=== PATIENT | male | born 1990 | race Caucasian/White ===

== ENCOUNTER 2017-07-26 18:47 | Emergency (ER) | payer SELFPAY ==
[2017-07-26] MEDS ORDERED: DEXAMETHASONE 10 MG/ML VIAL ONE (19:24)
[2017-07-26] MEDS ORDERED: DIPHENHYDRAMINE 25 MG TAB/CAP ONE (19:24)
[2017-07-26] MEDS ORDERED: METOCLOPRAMIDE 5 MG TAB ONE (19:25)
--- NOTE | 2017-07-26 19:27 | ER ---
Nurse's Notes [facility] Name: Devora Chan Age: 27 yrs Sex: Male : 1990 Arrival Date: 07/26/2017 Time: 18:50 Bed 20 Private MD: None, None Diagnosis: Migraine Presentation: 07/26 18:52 Presenting complaint: Patient states: "my left ear and my left eye have been hurting aa5 since yesterday". Pt denies cough, congestion. Pt states "I also feel like I am going to pass out". Transition of care: patient was not received from another setting of care. Onset of symptoms was July 2017. Risk Assessment: Do you want to hurt yourself or someone else? Patient reports no desire to harm self or others. Initial Sepsis Screen: Does the patient meet any 2 criteria? No. Patient's initial sepsis screen is negative. Does the patient have a suspected source of infection? No. Patient's initial sepsis screen is negative. Care prior to arrival: None. 18:52 Method Of Arrival: Ambulatory aa5 18:52 Acuity: BRANNON 3 aa5 Triage Assessment: 19:31 Headache History: Denies prior headaches. jd3 Historical: - Allergies: 18:53 No Known Allergies; aa5 - PMHx: 18:53 None; aa5 - PSHx: 18:53 None; aa5 - Immunization history:: Adult Immunizations unknown. - Social history:: Smoking status: Patient/guardian denies using tobacco. - Ebola Screening: : No symptoms or risks identified at this time. Screenin:31 Abuse screen: Denies threats or abuse. Nutritional screening: No deficits noted. jd3 Tuberculosis screening: No symptoms or risk factors identified. Tuberculosis screening: No symptoms or risk factors identified. Fall Risk Ambulatory Aid- None/Bed Rest/Nurse Assist (0 pts). Gait- Normal/Bed Rest/Wheelchair (0 pts) Mental Status- Oriented to own ability (0 pts). Total Arreola Fall Scale indicates No Risk (0-24 pts). Assessment: 19:02 General: Appears uncomfortable, Behavior is calm, cooperative, appropriate for age. jd3 Pain: Complains of pain in left ear and left side of face Pain currently is 10 out of 10 on a pain scale. Quality of pain is described as aching, sharp, Pain began 2-3 days ago. Is continuous, Also complains of sleeplessness. Neuro: Level of Consciousness is awake, alert, obeys commands, Oriented to person, place, time, situation, Moves all extremities. Full function Gait is steady, Speech is normal, Facial symmetry appears normal, Pupils are PERRLA, Intact. Cardiovascular: Heart tones S1 S2 present Capillary refill < 3 seconds Patient's skin is warm and dry. Respiratory: Airway is patent Respiratory effort is even, unlabored, Respiratory pattern is regular, symmetrical, Breath sounds are clear bilaterally. GI: No signs and/or symptoms were reported involving the gastrointestinal system. : No signs and/or symptoms were reported regarding the genitourinary system. EENT: Ear canal redness noted. Derm: Skin is healthy with good turgor, Skin is pink, warm \\T\\ dry. Musculoskeletal: Circulation, motion, and sensation intact. Range of motion: intact in all extremities. 19:41 Reassessment: Patient appears in no apparent distress at this time. Patient and/or jd3 family updated on plan of care and expected duration. Pain level reassessed. Patient is alert, oriented x 3, equal unlabored respirations, skin warm/dry/pink. pt reported understanding of discharge instructions, even and steady gait upon discharge. Vital Signs: 18:54 BP 143 / 101; Pulse 72; Resp 16 S; Temp 98.4(TE); Pulse Ox 97% on R/A; Weight 65.77 kg aa5 (R); Height 6 ft. 0 in. (182.88 cm) (R); Pain 9/10; 19:43 BP 130 / 88; Pulse 65; Resp 18 S; Pulse Ox 98% on R/A; jd3 18:54 Body Mass Index 19.67 (65.77 kg, 182.88 cm) aa5 ED Course: 18:50 Patient arrived in ED. sb2 18:50 None, None is Private Physician. sb2 18:53 Triage completed. aa5 18:53 Arm band placed on. aa5 19:02 Hardeep Aguilar, JEFFREY is Primary Nurse. jd3 19:10 Nael Forbes MD is Attending Physician. rn 19:17 Lc Cornell MD is Attending Physician. ps1 19:32 Patient has correct armband on for positive identification. jd3 19:42 No provider procedures requiring assistance completed. Patient did not have IV access jd3 during this emergency room visit. Administered Medications: 19:28 Drug: Benadryl 50 mg Route: PO; jd3 19:40 Follow up: Response: Medication administered at discharge. jd3 19:28 Drug: Reglan 10 mg Route: PO; jd3 19:40 Follow up: Response: Medication administered at discharge. jd3 19:28 Drug: Decadron 10 mg Route: IM; Site: Other; jd3 19:33 Follow up: Response: Medication administered at discharge. jd3 Outcome: 19:26 Discharge ordered by . ps1 19:42 Discharged to home ambulatory, with family. jd3 19:42 Condition: stable 19:42 Discharge instructions given to patient, family, Instructed on discharge instructions, follow up and referral plans. Demonstrated understanding of instructions, follow-up care. 19:43 Patient left the ED. jd3 Signatures: Nael Forbes MD MD rn Calderon, Audri, RN RN aa5 Hardeep Aguilar RN RN jd3 Singer, Phillip, MD MD ps1 Sushma Chua sb2
--- NOTE | 2017-07-26 19:27 | EDPHYS ---
Physician Documentation [facility] Name: Devora Chan Age: 27 yrs Sex: Male : 1990 Arrival Date: 07/26/2017 Time: 18:50 Bed 20 Private MD: None, None ED Physician Lc Cornell HPI: 07/26 19:17 This 27 yrs old Male presents to ER via Ambulatory with complaints of ps1 Headache. 19:17 patient states that he has had an intermittent headache for the last week. Describes ps1 the pain as sharp and localized to the left temporal region. States that he had ear pain in the beginning of the week and that might be the cause. Pain rated as moderate, worse with loud noises. Pain radiates behind the eye. No visual disturbance or aura. No mastoid pain. . Historical: - Allergies: 18:53 No Known Allergies; aa5 - PMHx: 18:53 None; aa5 - PSHx: 18:53 None; aa5 - Immunization history:: Adult Immunizations unknown. - Social history:: Smoking status: Patient/guardian denies using tobacco. - Ebola Screening: : No symptoms or risks identified at this time. ROS: 19:17 Constitutional: Negative for fever, chills, and weight loss, Eyes: Negative for injury, ps1 pain, redness, and discharge, Cardiovascular: Negative for chest pain, palpitations, and edema, Respiratory: Negative for shortness of breath, cough, wheezing, and pleuritic chest pain, Abdomen/GI: Negative for abdominal pain, nausea, vomiting, diarrhea, and constipation, Back: Negative for injury and pain, MS/Extremity: Negative for injury and deformity, Skin: Negative for injury, rash, and discoloration. 19:17 ENT: Positive for ear pain. 19:17 Neuro: Positive for headache, Negative for dizziness, gait disturbance, hearing loss, visual changes, weakness. Exam: 19:17 Constitutional: This is a well developed, well nourished patient who is awake, alert, ps1 and in no acute distress. Head/Face: Normocephalic, atraumatic. Eyes: Pupils equal round and reactive to light, extra-ocular motions intact. Lids and lashes normal. Conjunctiva and sclera are non-icteric and not injected. 19:17 Cardiovascular: Regular rate and rhythm. No gallops, murmurs, or rubs. Normal PMI, no JVD. No pulse deficits. Respiratory: Lungs have equal breath sounds bilaterally, clear to auscultation and percussion. No rales, rhonchi or wheezes noted. No increased work of breathing, no retractions or nasal flaring. Abdomen/GI: Soft, non-tender, with normal bowel sounds. No distension or tympany. No guarding or rebound. No evidence of tenderness throughout. Back: No spinal tenderness. No costovertebral tenderness. Full range of motion. MS/ Extremity: Pulses equal, no cyanosis. Neurovascular intact. Full, normal range of motion. Neuro: Awake and alert, GCS 15, oriented to person, place, time, and situation. Cranial nerves II-XII grossly intact. Sensory grossly intact. Psych: Awake, alert, with orientation to person, place and time. Behavior, mood, and affect are within normal limits. 19:17 ENT: Mouth: poor dentition. Vital Signs: 18:54 BP 143 / 101; Pulse 72; Resp 16 S; Temp 98.4(TE); Pulse Ox 97% on R/A; Weight 65.77 kg aa5 (R); Height 6 ft. 0 in. (182.88 cm) (R); Pain 9/10; 19:43 BP 130 / 88; Pulse 65; Resp 18 S; Pulse Ox 98% on R/A; jd3 18:54 Body Mass Index 19.67 (65.77 kg, 182.88 cm) aa5 MDM: 19:10 Patient medically screened. rn 19:17 Data reviewed: vital signs, nurses notes. ED course: Patient seen and evaluated. ps1 History not concerning for SAH. No mastoid pain. Seems more c/w migraine. Left ear had no effusion. Mildly erythematous but otherwise not concerning for infection. Will give decadron, benadryl, and reglan. Stable for discharge. . Administered Medications: 19:28 Drug: Benadryl 50 mg Route: PO; jd3 19:40 Follow up: Response: Medication administered at discharge. jd3 19:28 Drug: Reglan 10 mg Route: PO; jd3 19:40 Follow up: Response: Medication administered at discharge. jd3 19:28 Drug: Decadron 10 mg Route: IM; Site: Other; jd3 19:33 Follow up: Response: Medication administered at discharge. jd3 Disposition: 07/26/17 19:26 Discharged to Home. Impression: Migraine. - Condition is Stable. - Discharge Instructions: Migraine Headache, [id number]. - Medication Reconciliation Form, Thank You Letter, Antibiotic Education, Prescription Opioid Use form. - Follow up: Private Physician; When: As needed; Reason: Recheck today's complaints, Continuance of care, Re-evaluation by your physician. Follow up: Emergency Department; When: As needed; Reason: Fever > 102 F, Worsening of condition. - Problem is new. - Symptoms are unchanged. Signatures: Nael Forbes MD MD rn Calderon, Audri, RN RN aa5 Hardeep Aguilar RN RN jd3 Lc Cornell MD MD ps1 Corrections: (The following items were deleted from the chart) 19:43 19:26 07/26/2017 19:26 Discharged to Home. Impression: Migraine. Condition is Stable. jd3 Forms are Medication Reconciliation Form, Thank You Letter, Antibiotic Education, Prescription Opioid Use. Follow up: Private Physician; When: As needed; Reason: Recheck today's complaints, Continuance of care, Re-evaluation by your physician. Follow up: Emergency Department; When: As needed; Reason: Fever > 102 F, Worsening of condition. Problem is new. Symptoms are unchanged. ps1
== END 2017-07-26 19:43 | disposition home or self-care (01) ==
LOC: ER 18:47
DX: G43.909 Migraine, unspecified, not intractable, without status migrainosus (principal)
CPT/HCPCS: 96372; 99283; J1100

== ENCOUNTER 2023-09-22 16:28 | Observation (INO) | payer OTHER, SELFPAY ==
[2023-09-22] MEDS ORDERED: TDAP (DIPHTH,PERTUSS(ACELL),TET VAC) 0.5 ML VIAL IMVAC ONE (17:00)
[2023-09-22] MEDS ORDERED: CEFAZOLIN SODIUM 1 GM/VIAL ONE (17:00)
[2023-09-22] MEDS ORDERED: MORPHINE 4 MG/ML SYR ONE (17:00)
[2023-09-22] MEDS ORDERED: ONDANSETRON 4 MG/2 ML VIAL ONE (17:00)
[2023-09-22] MEDS ORDERED: NA CHLORIDE 0.9% 50 ML ONE (17:01)
--- NOTE | 2023-09-22 17:07 | EDPHYS ---
Physician Documentation [facility] Name: Devora Chan Age: 33 yrs Sex: Male : 1990 Arrival Date: 09/22/2023 Time: 16:28 Bed 15 Private MD: ED Physician Nabil Lang HPI: 09/21 16:59 This 33 yrs old Male presents to ER via Ambulatory with complaints of foreign ankita body in leg. 16:59 The patient presents with pain, swelling, tenderness. The complaints affect the lateral ankita aspect of left calf and left lateral ankle. Context: resulted from puncture, the patient can partially bear weight. Onset: The symptoms/episode began/occurred just prior to arrival. Modifying factors: The symptoms are alleviated by elevating leg, remaining still, the symptoms are aggravated by nothing. Severity of symptoms: At their worst the symptoms were moderate, in the emergency department the symptoms are unchanged. The patient has not experienced similar symptoms in the past. Historical: - Allergies: 16:38 NSAIDS; ld1 - PMHx: 16:38 Hypertensive disorder; GERD; ld1 - Immunization history:: Adult Immunizations up to date. - Infectious Disease History:: Denies. - Social history:: Smoking status: Patient denies any tobacco usage or history of. - Family history:: not pertinent. ROS: 17:02 Constitutional: Negative for fever, chills, and weight loss, Eyes: Negative for injury, ankita pain, redness, and discharge, ENT: Negative for injury, pain, and discharge, Neck: Negative for injury, pain, and swelling, Cardiovascular: Negative for chest pain, palpitations, and edema, Respiratory: Negative for shortness of breath, cough, wheezing, and pleuritic chest pain, Abdomen/GI: Negative for abdominal pain, nausea, vomiting, diarrhea, and constipation, Back: Negative for injury and pain, : Negative for injury, bleeding, discharge, and swelling, Skin: Negative for injury, rash, and discoloration, Neuro: Negative for headache, weakness, numbness, tingling, and seizure, Psych: Negative for depression, anxiety, suicide ideation, homicidal ideation, and hallucinations, Allergy/Immunology: Negative for hives, rash, and allergies, Endocrine: Negative for neck swelling, polydipsia, polyuria, polyphagia, and marked weight changes, Hematologic/Lymphatic: Negative for swollen nodes, abnormal bleeding, and unusual bruising, 17:02 MS/extremity: Positive for decreased range of motion, pain, swelling, tenderness, of the lateral aspect of left calf and left lateral ankle, Exam: 17:02 Constitutional: This is a well developed, well nourished patient who is awake, alert, ankita and in no acute distress. Head/Face: Normocephalic, atraumatic. Eyes: Pupils equal round and reactive to light, extra-ocular motions intact. Lids and lashes normal. Conjunctiva and sclera are non-icteric and not injected. Cornea within normal limits. Periorbital areas with no swelling, redness, or edema. ENT: Nares patent. No nasal discharge, no septal abnormalities noted. Tympanic membranes are normal and external auditory canals are clear. Oropharynx with no redness, swelling, or masses, exudates, or evidence of obstruction, uvula midline. Mucous membranes moist. Neck: Trachea midline, no thyromegaly or masses palpated, and no cervical lymphadenopathy. Supple, full range of motion without nuchal rigidity, or vertebral point tenderness. No Meningismus. Chest/axilla: Normal chest wall appearance and motion. Nontender with no deformity. No lesions are appreciated. Cardiovascular: Regular rate and rhythm with a normal S1 and S2. No gallops, murmurs, or rubs. Normal PMI, no JVD. No pulse deficits. Respiratory: Lungs have equal breath sounds bilaterally, clear to auscultation and percussion. No rales, rhonchi or wheezes noted. No increased work of breathing, no retractions or nasal flaring. Abdomen/GI: Soft, non-tender, with normal bowel sounds. No distension or tympany. No guarding or rebound. No evidence of tenderness throughout. Back: No spinal tenderness. No costovertebral tenderness. Full range of motion. Neuro: Awake and alert, GCS 15, oriented to person, place, time, and situation. Cranial nerves II-XII grossly intact. Motor strength 5/5 in all extremities. Sensory grossly intact. Cerebellar exam normal. Normal gait. Psych: Awake, alert, with orientation to person, place and time. Behavior, mood, and affect are within normal limits. 17:02 Skin: injury, puncture(s), that are deep, of the lateral aspect of left calf and left lateral ankle, Vital Signs: 16:36 BP 146 / 100; Pulse 98; Resp 18; Temp 98(TE); Pulse Ox 100% on R/A; Weight 92.99 kg; ld1 Height 6 ft. 0 in. ; Pain 0/10; 18:21 BP 150 / 97; Pulse 89; Resp 16 S; Pulse Ox 100% on R/A; kc6 19:05 BP 138 / 85; Pulse 79; Resp 18; Pulse Ox 100% on R/A; rg5 16:36 Body Mass Index 27.80 (92.99 kg, 182.88 cm) ld1 16:36 Pain Scale: Adult ld1 MDM: 16:32 Patient medically screened. [facility] 17:00 Differential diagnosis: puncture with foreign. Data reviewed: vital signs, nurses [facility] notes, lab test result(s), radiologic studies. Consideration of Admission/Observation Escalation of care including admission/observation considered. I considered the following discharge prescriptions or medication management in the emergency department Medications were administered in the Emergency Department. See MAR. Independent interpretation of the following test(s) in the Emergency Department X-Ray: My interpretation is fb seen. Test considered but Not performed: EKG: no ekg. Care significantly affected by the following chronic conditions: Hypertension, gerd. 09/21 16:57 Order name: CBC with Diff; Complete Time: 20:13 ankita 09/21 16:57 Order name: Comprehensive Metabolic Panel; Complete Time: 20:13 ankita 09/21 18:54 Order name: CBC with Automated Diff EDOH 09/21 18:54 Order name: Comprehensive Metabolic Panel EDOH 09/21 18:54 Order name: Comprehensive Metabolic Panel EDOH 09/21 16:43 Order name: Tib Fib Left XRAY; Complete Time: 20:13 bd 09/21 18:54 Order name: CONS Physician Consult EDMS Administered Medications: 17:15 Drug: morphine IVP or IV 2 mg IVP once over 4 mins Route: IVP; Infused Over: 4 mins; kc6 Site: right antecubital; 18:14 Follow up: Response: No adverse reaction; Pain is decreased; RASS: Alert and Calm (0) kc6 17:15 Drug: morphine IVP or IV 2 mg IVP once over 4 mins Route: IVP; Infused Over: 4 mins; kc6 Site: right antecubital; 18:14 Follow up: Response: No adverse reaction; Pain is decreased; RASS: Alert and Calm (0) kc6 17:15 Drug: Ondansetron IVP 4 mg IVP once; over 2 minutes Route: IVP; Site: right antecubital;kc6 18:14 Follow up: Response: No adverse reaction kc6 17:15 Drug: Boostrix Tdap IM 0.5 ml IM once; as a single dose Route: IM; Site: right deltoid; kc6 18:15 Follow up: Response: No adverse reaction kc6 17:15 Drug: ceFAZolin IVPB 1 grams 50 ml IVPB once over 30 mins Volume: 50 ml; Route: IVPB; kc6 Infused Over: 30 mins; Site: right antecubital; 18:15 Follow up: Response: No adverse reaction; IV Status: Completed infusion; IV Intake: [id number] Disposition Summary: 09/22/23 17:07 Hospitalization Ordered Notes: Hospitalization Status: Observation ankita Condition: Stable ankita Problem: new ankita Symptoms: have improved ankita Bed/Room Type: Standard ankita Provider: Jaymie Diaz(09/22/23 17:16) ankita Location: Telemetry/MedSurg (observation)(09/22/23 19:15) sa1 Room Assignment: 219(09/22/23 19:15) sa Diagnosis - Puncture wound with foreign body, left lower leg, initial encounter - needle ankita Forms: - Medication Reconciliation Form ankita - SBAR form ankita - Leadership Thank You Letter [facility] Signatures: Dispatcher [employer] Nabil Hannon MD MD cha Sims, Lauren RN RN mark1 Irene Hollins RN RN kc6 [facility] An[facility] Corrections: (The following items were deleted from the chart) 17:16 17:07 Yuan Barre[facility] 19:15 17:07 DAY SURGERY OTHER [place] [id number] 19:15 17:07 [place] [id number]
--- NOTE | 2023-09-22 17:07 | ER ---
Nurse's Notes [facility] Name: Devora Chan Age: 33 yrs Sex: Male : 1990 Arrival Date: 09/22/2023 Time: 16:28 Bed 15 Private MD: Diagnosis: Puncture wound with foreign body, left lower leg, initial encounter-needle Presentation: 09/21 16:36 Chief complaint: Patient states: Part of sowing needle in pt left leg. Coronavirus ld1 screen: At this time, the client does not indicate any symptoms associated with coronavirus-19. Ebola Screen: No symptoms or risks identified at this time. Initial Sepsis Screen: Does the patient meet any 2 criteria? No. Patient's initial sepsis screen is negative. Does the patient have a suspected source of infection? No. Patient's initial sepsis screen is negative. Risk Assessment: Do you want to hurt yourself or someone else? Patient reports no desire to harm self or others. Onset of symptoms was September 22, 2023. 16:36 Method Of Arrival: Ambulatory ld1 16:36 Acuity: BRANNON 3 ld1 Triage Assessment: 16:38 General: Appears in no apparent distress. comfortable, Behavior is calm, cooperative, ld1 appropriate for age. Pain: Denies pain. EENT: No signs and/or symptoms were reported regarding the EENT system. Neuro: Level of Consciousness is awake, alert, obeys commands, Oriented to person, place, time. Cardiovascular: Capillary refill < 3 seconds Patient's skin is warm and dry. Respiratory: Airway is patent Respiratory effort is even, unlabored. GI: Abdomen is round non-distended. : No signs and/or symptoms were reported regarding the genitourinary system. Derm: No signs and/or symptoms reported regarding the dermatologic system. Musculoskeletal: No signs and/or symptoms reported regarding the musculoskeletal system. Historical: - Allergies: 16:38 NSAIDS; ld1 - PMHx: 16:38 Hypertensive disorder; GERD; ld1 - Immunization history:: Adult Immunizations up to date. - Infectious Disease History:: Denies. - Social history:: Smoking status: Patient denies any tobacco usage or history of. - Family history:: not pertinent. Screenin:45 [facility] ED Fall Risk Assessment (Adult) History of falling in the last 3 months, kc6 including since admission No falls in past 3 months (0 pts) Confusion or Disorientation No (0 pts) Intoxicated or Sedated No (0 pts) Impaired Gait No (0 pts) Mobility Assist Device Used No (0 pt) Altered Elimination No (0 pt) Score/Fall Risk Level 0 - 2 = Low Risk. Abuse screen: Denies threats or abuse. Denies injuries from another. Nutritional screening: No deficits noted. Tuberculosis screening: No symptoms or risk factors identified. Assessment: 16:45 General: Appears in no apparent distress. comfortable, well groomed, well developed, kc6 Behavior is calm, cooperative, appropriate for age. Pain: Complains of pain in lateral aspect of left calf Pain does not radiate. Quality of pain is described as sharp, shooting, piercing, Pain began suddenly, Is episodic, Alleviated by rest, repositioning, Aggravated by increased activity, weight bearing, Also complains of no other associated symptoms. Neuro: Level of Consciousness is awake, alert, obeys commands, Oriented to person, place, time, situation, Appropriate for age. Cardiovascular: Capillary refill < 3 seconds. Respiratory: Airway is patent Trachea midline Respiratory effort is even, unlabored, Respiratory pattern is regular, symmetrical. GI: No signs and/or symptoms were reported involving the gastrointestinal system. : No signs and/or symptoms were reported regarding the genitourinary system. EENT: No signs and/or symptoms were reported regarding the EENT system. Derm: Skin is healthy with good turgor, Skin is dry, Skin is pink, warm \T\ dry. Skin temperature is warm. Musculoskeletal: No signs and/or symptoms reported regarding the musculoskeletal system. Circulation, motion, and sensation intact. Capillary refill < 3 seconds, Range of motion: intact in all extremities. Injury Description: Puncture sustained to lateral aspect of left calf is superficial, was sustained 30-60 minutes ago. 17:45 Reassessment: Patient appears in no apparent distress at this time. No changes from kc6 previously documented assessment. Patient and/or family updated on plan of care and expected duration. Pain level reassessed. Patient is alert, oriented x 3, equal unlabored respirations, skin warm/dry/pink. 19:05 General: Appears in no apparent distress. comfortable, Behavior is calm. Pain: Denies rg5 pain. Neuro: Level of Consciousness is awake, alert, obeys commands, Oriented to person, place, time. Cardiovascular: Denies chest pain, Capillary refill < 3 seconds Patient's skin is warm and dry. Respiratory: Airway is patent Trachea midline Respiratory effort is. Vital Signs: 16:36 BP 146 / 100; Pulse 98; Resp 18; Temp 98(TE); Pulse Ox 100% on R/A; Weight 92.99 kg; ld1 Height 6 ft. 0 in. ; Pain 0/10; 18:21 BP 150 / 97; Pulse 89; Resp 16 S; Pulse Ox 100% on R/A; kc6 19:05 BP 138 / 85; Pulse 79; Resp 18; Pulse Ox 100% on R/A; rg5 16:36 Body Mass Index 27.80 (92.99 kg, 182.88 cm) ld1 16:36 Pain Scale: Adult ld1 ED Course: 16:31 Patient arrived in ED. ra3 16:32 Nabil Lang MD is Attending Physician. [facility] 16:38 Triage completed. ld1 16:38 Arm band placed on right wrist. ld1 16:45 Patient has correct armband on for positive identification. Placed in gown. Bed in low kc6 position. Call light in reach. Side rails up X 1. Adult w/ patient. Pulse ox on. NIBP on. Door closed. Noise minimized. Lights dimmed. Pillow given. 16:45 Diet: Patient is NPO. kc6 16:46 Irene Hollins, RN is Primary Nurse. kc6 16:57 Tib Fib Left XRAY In Process Unspecified. EDMS 17:04 Yuan Barreto MD is Hospitalizing Provider. [facility] 17:16 Hospitalizing Provider role handed off by Yuan Barreto MD [facility] 17:16 Jaymie Diaz MD is Hospitalizing Provider. [facility] 17:16 Inserted saline lock: 20 gauge in right antecubital area, using aseptic technique. kc6 Blood collected. Flushed with 10 mL NS. 19:05 Resting quietly. Awaiting bed assignment. rg5 19:33 No provider procedures requiring assistance completed. Patient admitted, IV remains in rg5 place. intact, No redness/swelling at site. 19:34 Provided Education on: npo post mn. rg5 19:50 Comprehensive Metabolic Panel Sent. rg5 19:51 Comprehensive Metabolic Panel Sent. rg5 19:51 CBC with Automated Diff Sent. rg5 Administered Medications: 17:15 Drug: morphine IVP or IV 2 mg IVP once over 4 mins Route: IVP; Infused Over: 4 mins; kc6 Site: right antecubital; 18:14 Follow up: Response: No adverse reaction; Pain is decreased; RASS: Alert and Calm (0) kc6 17:15 Drug: morphine IVP or IV 2 mg IVP once over 4 mins Route: IVP; Infused Over: 4 mins; kc6 Site: right antecubital; 18:14 Follow up: Response: No adverse reaction; Pain is decreased; RASS: Alert and Calm (0) kc6 17:15 Drug: Ondansetron IVP 4 mg IVP once; over 2 minutes Route: IVP; Site: right antecubital;kc6 18:14 Follow up: Response: No adverse reaction kc6 17:15 Drug: Boostrix Tdap IM 0.5 ml IM once; as a single dose Route: IM; Site: right deltoid; kc6 18:15 Follow up: Response: No adverse reaction kc6 17:15 Drug: ceFAZolin IVPB 1 grams 50 ml IVPB once over 30 mins Volume: 50 ml; Route: IVPB; kc6 Infused Over: 30 mins; Site: right antecubital; 18:15 Follow up: Response: No adverse reaction; IV Status: Completed infusion; IV Intake: [id number] Medication: 19:34 VIS not applicable for this client. rg5 Intake: 18:15 IV: 50ml; Total: 50ml. kc6 Outcome: 17:07 Decision to Hospitalize by Provider. ankita 19:34 Admitted to Med/surg rg5 19:34 Condition: stable rg5 19:34 Instructed on the need for admit, 20:16 Patient left the ED. rg5 Signatures: Dispatcher [employer] EDMS Nabil Lang MD MD cha Sims, Lauren RN RN mark1 Irene Hollins RN RN raj6 She Hi ra3 Otis Wallace RN RN rg5
--- NOTE | 2023-09-22 17:10 | RAD REPORT ---
EXAM DESCRIPTION: RAD - Tib Fib Left - 09/22/2023 4:55 pm CLINICAL HISTORY: r/o foreign body COMPARISON: No comparisons FINDINGS: Linear foreign body is seen projecting over the distal fibular shaft. No fracture.
[2023-09-22 17:25] LABS: Absolute Basophils 0.1 K/uL (0-0.5); Absolute Eosinophils 0.1 K/uL (0-0.5); Absolute Lymphocytes (CBC) 2.2 K/uL (0.7-4.9); Absolute Monocytes 0.7 K/uL (0.1-1.3); Basophils % 0.7 % (0-1.3); Eosinophils % 0.9 % (0-4.4); Hematocrit 51.4 % (39.6-49.0); Hemoglobin 17.3 g/dL (13.6-17.9); Lymphocytes % 24.5 % (15.3-44.8); MCH 31.3 pg (27.0-35.0); MCHC 33.7 g/dL (32.0-36.0); MCV 92.9 fL (80-100); MPV 7.8 fL (7.6-11.3); Monocytes % 7.7 % (3.3-12.3); Neutrophils % 66.2 % (41.7-73.7); Nucleated Red Blood Cells % 0.1 % (0-0); Platelets 227 thou/uL (152-406); RBC Red Blood Cell Count 5.53 M/uL (4.33-5.43); Red Cell Distribution Width 14.9 % (12.1-15.2)
[2023-09-22 17:41] LABS: Albumin 4.2 g/dL (3.4-5.0); Albumin/Globulin Ratio 1.2 (1.1-1.8); Anion Gap 10.3 mEq/L (5.0-15.0); Bilirubin Total 0.7 mg/dL (0.2-1.0); Globulin 3.5 g/dL (2.3-3.5); Potassium 3.3 mEq/L (3.5-5.1); Protein, Total 7.7 g/dL (6.4-8.2)
--- NOTE | 2023-09-22 18:56 | P.HP ---
Certification for Inpatient Patient admitted to: Observation With expected LOS: <2 Midnights Practitioner: I am a practitioner with admitting privileges, knowledge of patient current condition, hospital course, and medical plan of care. Services: Services provided to patient in accordance with Admission requirements found in Title 42 Section 412.3 of the Code of Federal Regulations Patient History Date of Service: 09/22/23 Reason for admission: Needle injury to the left lower tibia History of Present Illness: Patient is 33 years of age had an accident needle penetration injury which broke off in the left lower tibia and some pain in up in the hospital he has a broken needle better rate is no other complaint Allergies No Known Allergies Allergy (Unverified 07/26/17 19:47) - Past Medical/Surgical History -: Hypertension -: GERD - Family History Family History: Reviewed- Non-Contributory - Social History Smoking Status: Never smoker Review of Systems 10-point ROS is otherwise unremarkable Physical Examination - Vital Signs Temperature: 98 F Blood Pressure: 146/100 Pulse: 98 Respirations: 80 Pulse Ox (%): 100 - Physical Exam General: Alert Neck: Supple Respiratory: Clear to auscultation bilaterally Cardiovascular: No edema, Regular rate/rhythm Gastrointestinal: Normal bowel sounds, Soft and benign Musculoskeletal: No clubbing, No swelling, No contractures Integumentary: Other (He has a slight penetration injury at 1 cm noticed in the left lower tibial region) Neurological: Normal gait, Normal speech, Normal strength at 5/5 x4 extr - Studies Laboratory Data (last 24 hrs) 09/22/23 09/22/23 17:14 17:14 WBC 9.10 Hgb 17.3 Hct 51.4 H Plt Count 227 Sodium 139 Potassium 3.3 L BUN 6 L Creatinine 1.38 H Glucose 96 Total Bilirubin 0.7 AST 89 H ALT 163 H Alkaline Phosphatase 74 Assessment and Plan - Problems (Diagnosis) (1) Foreign body (FB) in soft tissue Current Visit: Yes Status: Acute Plan: Patient is 33 years of age admitted with accidental needle injury which broke off while on the x-ray patient will be admitted Dr. Avendano has been consulted continue with cefazolin pain relief p.o. after midnight patient has abnormal liver function test renal function is also abnormal Linear foreign body is seen projecting over the distal fibular shaft. No fracture (2) Abnormal liver function test Current Visit: Yes Status: Acute Plan: Has abnormal liver function test AL ALT is more elevated than AST - Advance Directives Does patient have a Living Will: No Does patient have a Durable POA for Healthcare: No
[2023-09-22 21:07] VITALS: BMI 27.8
[2023-09-22] MEDS: NA CHLORIDE 0.9% 1,000 ML IV SCH (21:08)
[2023-09-22] MEDS: ONDANSETRON 4 MG/2 ML VIAL IV PRN (22:22)
[2023-09-22] MEDS: MORPHINE 2 MG/ML SYR IV PRN (22:22)
[2023-09-23] MEDS: CEFAZOLIN 2 GM in NA CHLORIDE 0.9% 50 ML IVPB SCH (00:02)
[2023-09-23 05:13] LABS: Absolute Eosinophils 0.2 K/uL (0-0.5); Absolute Lymphocytes (CBC) 2.5 K/uL (0.7-4.9); Absolute Monocytes 0.6 K/uL (0.1-1.3); Absolute Neutrophil 4.8 K/uL (1.8-8.0); Basophils % 0.4 % (0-1.3); Hematocrit 49.3 % (39.6-49.0); Hemoglobin 16.9 g/dL (13.6-17.9); Lymphocytes % 30.7 % (15.3-44.8); MCH 32.2 pg (27.0-35.0); MCHC 34.3 g/dL (32.0-36.0); MPV 8.2 fL (7.6-11.3); Monocytes % 7.7 % (3.3-12.3); Neutrophils % 59.2 % (41.7-73.7); Platelets 192 thou/uL (152-406); RBC Red Blood Cell Count 5.25 M/uL (4.33-5.43)
[2023-09-23 05:23] LABS: Albumin 3.5 g/dL (3.4-5.0); Albumin/Globulin Ratio 1.2 (1.1-1.8); Anion Gap 8.4 mEq/L (5.0-15.0); Bilirubin Total 0.7 mg/dL (0.2-1.0); Potassium 3.4 mEq/L (3.5-5.1); Protein, Total 6.5 g/dL (6.4-8.2)
[2023-09-23] MEDS: CEFAZOLIN SODIUM 2 GM in NA CHLORIDE 0.9% 100 ML IVPB SCH (07:57)
--- NOTE | 2023-09-23 14:15 | P.PN ---
Subjective Date of Service: 09/23/23 Chief Complaint: Needle injury to the left lower tibia Subjective: No new changes (awaiting OR time, no c/o) <Thuy Duarte - Last Filed: 09/23/23 14:16> Date of Service: 09/23/23 <Dominiqeu Lucas - Last Filed: 09/26/23 15:45> Review of Systems 10-point ROS is otherwise unremarkable Integumentary: Other (left ankle with abrasion) <Brynn Duartey Deep - Last Filed: 09/23/23 14:16> Physical Examination - Vital Signs Temperature: 97.5 F Blood Pressure: 129/79 Pulse: 56 Respirations: 16 Pulse Ox (%): 96 - Physical Exam General: Alert, In no apparent distress, Oriented x3 HEENT: Atraumatic, Normocephalic Neck: Supple Respiratory: Normal air movement Cardiovascular: Normal pulses, Regular rate/rhythm, Normal S1 S2 Capillary refill: <2 Seconds Gastrointestinal: Normal bowel sounds Musculoskeletal: No clubbing, No swelling Integumentary: Other (left lateral ankle punture/abrasion) Neurological: Normal speech, Normal tone, Normal affect Lymphatics: No axilla or inguinal lymphadenopathy External genitalia: Deferred Rectal: Deferred - Studies Laboratory Data (last 24 hrs) 09/22/23 09/22/23 17:14 17:14 WBC 9.10 Hgb 17.3 Hct 51.4 H Plt Count 227 Sodium 139 Potassium 3.3 L BUN 6 L Creatinine 1.38 H Glucose 96 Total Bilirubin 0.7 AST 89 H ALT 163 H Alkaline Phosphatase 74 <Thuy Duarte - Last Filed: 09/23/23 14:16> Assessment And Plan - Plan Assessment and Plan - Problems (Diagnosis) (1) Foreign body (FB) in soft tissue Current Visit: Yes Status: Acute Plan: Patient is 33 years of age admitted with accidental needle injury. cefazolin pain relief n.p.o. after midnight Linear foreign body is seen projecting over the distal fibular shaft. No fracture tetanus imm updated in ED (2) Abnormal liver function test Current Visit: Yes Status: Acute Plan: Has abnormal liver function test. ALT is more elevated than AST monitor and trend (3) HTN continue to monitor, continue home medications (4) GERD protonix - Advance Directives Does patient have a Living Will: No Does patient have a Durable POA for Healthcare: No <Thuy Duarte Deep - Last Filed: 09/23/23 14:16> Date of Service: 09/23/23 Patient was seen and examined. Events of the last 24 hours have been noted. Spoke with with FAIZAN regarding patient's clinical picture after evaluating and examining the patient independently. I performed a substantial part of the MDM during this patient's care today. I personally made or approved the documented management plan and acknowledge its risk of complications. I agree with the findings and documentation provided in the FAIZAN's notes. <Dominique Lucas - Last Filed: 09/26/23 15:45>
[2023-09-23] MEDS ORDERED: MIDAZOLAM HCL 2 MG/2 ML INJ ONE (19:02)
[2023-09-23] MEDS ORDERED: FENTANYL CITR 100 MCG/2 ML ONE (19:02)
[2023-09-23] MEDS ORDERED: propofoL 200 MG/20 ML VIAL IV ONE (19:02)
[2023-09-23] MEDS: LIDOCAINE HCL/EPINEPHRINE 20 ML MDV ONE (19:33)
[2023-09-23] MEDS ORDERED: SUCCINYLCHOLINE 20 MG/ML (10 ML) IV ONE (20:55)
--- NOTE | 2023-09-23 21:01 | P.OP ---
Preoperative diagnosis: Foreign Body of LEFT ankle Postoperative diagnosis: Foreign Body of LEFT ankle Primary procedure: Removal of Foreign Body of LEFT ankle Secondary procedure: Flouroscopy with interpretation Anesthesia: GETA + Local Estimated blood loss: <10cc Specimen: Foreign body - Broken Needle Findings: Transverse corse from interstion with edema, Fibularis longis / Brevis Complications: None Transferred to: Recovery Room Condition: Good
[2023-09-23] MEDS: MEPERIDINE HCL 25 MG/ML SYR ONE (21:05)
[2023-09-23] MEDS: ONDANSETRON 4 MG/2 ML VIAL ONE (21:18)
--- NOTE | 2023-09-23 21:33 | OP ---
Date of Procedure: 09/23/2023 Surgeon: Yuan Barreto MD, Preoperative Diagnosis: Foreign body of the left ankle. Postoperative Diagnosis: Foreign body of the left ankle. Procedure Performed: Removal of foreign body of the left ankle using fluoroscopy and interpretation. Anesthesia: General endotracheal plus local, 1% lidocaine. Estimated Blood Loss: Less than 10 cc. Specimen: Foreign body was consistent with a broken needle. Findings: The needle had a significant transverse course from superior to inferior and a somewhat po sterior course through the fibularis longus and brevis. There was an edematous track following this course through muscular planes with fluid accumulation. Complications: None. Disposition: The patient was transferred to recovery room in good condition. Procedure In Detail: After informed consent was obtained, patient was brought to the operating room, prepped and draped in the usual sterile fashion. After adequate anesthesia achieved, I made a linea r incision extending from the insertion site down inferiorly towards the presumed resting location of what appeared to be broken needle using fluoroscopic guidance. After the incision was made, I disse cted down through the tissue planes ultimately to location of the foreign body, needle, in the fibularis longus/fibularis brevis tendon sheaths within transverse course across this extending up to posterior to the tibia. This was removed in plane. The area was copiously irrigated and close d with interrupted king at this point without evidence of complication. A sterile dressing was pl aced over top. The patient tolerated the procedure without incident or complication and transferred to PACU in good condition. All counts were correct at the end of the case. MISTY/JACQUELINE Voice ID: [id number] Report ID: [id number]
[2023-09-23] MEDS: HYDROCODONE/APAP 5/325 MG TAB PO PRN (22:42)
--- NOTE | 2023-09-23 22:54 | RAD REPORT ---
EXAM DESCRIPTION: RAD - Fluoroscopy <1 Hour - 09/23/2023 10:15 pm CLINICAL HISTORY: FB COMPARISON: None available. FINDINGS: Sixteen Images were sent to PACS, documenting fluoroscopy use during image guided foreign body extraction procedure. No radiologist was available for the procedure, nor will any image interpr etation he provided. Please refer to the procedural report for additional details. Fluoroscopy time: 3.5 minutes. IMPRESSION: Documentation of fluoroscopy utilization as above.
[2023-09-24 08:44] VITALS: BP 127/58; TEMP 98.2
--- NOTE | 2023-09-24 08:57 | P.DS ---
Admission Date: 09/22/23 Discharge Date: 09/24/23 Reason for Admission: Needle injury to the left lower tibia Consultations: Dr. Barreto Procedures: Foreign body removal with fluoroscopy Brief History of Present Illness: Mrs. Chan was using a sewing needle/quilting needle on the bed cover. Mr. Sigala was unaware of the needle and flopped onto the bed. The needle pierced his left lateral lower extremity and was embedded underneath the skin. Dr. Barreto will take to the operating room for foreign body removal. Hospital Course: Mr. Chan underwent surgical removal of the needle yesterday afternoon. The removal was somewhat technical and did penetrate some ligaments. Dr. Barreto reevaluated the surgical area this morning and the patient has full range of motion of his left ankle. The patient is pain-free unless ambulatory. For that reason he will be discharged with crutches. He is to do range of motion ankle exercises every 2-3 hours while awake. He should follow-up with Dr. Mcdonnell of in his clinic weekly if the patient prefers, but at least in 2 weeks for wound reevaluation and staple removal. Incidentally Mr. Chan has some elevations of his AST and ALT. He should continue his current medications and follow-up with his PCP for reevaluation. <Thuy Duarte - Last Filed: 09/24/23 08:58> Admission Date: 09/22/23 Discharge Date: 09/24/23 Hospital Course: Pt seen and examined. I agree with the note by the [employer]. Gen surgeon removed the needle. Pt was advised to do range of motion exercises of his left ankle every 2 - 3 hours. F/u with PCp. Ok to discharge pt. <Jaymie Diaz - Last Filed: 09/24/23 11:45> Disposition: ROUTINE DISCHARGE Discharge Condition: GOOD Vital Signs/Physical Exam: Temp Pulse Resp BP Pulse Ox 98.2 F 73 14 127/58 L 93 09/24/23 08:00 09/24/23 08:00 09/24/23 08:00 09/24/23 08:00 09/24/23 08:00 General: Alert, In no apparent distress, Oriented x3 HEENT: Atraumatic, Normocephalic, PERRLA Neck: Supple, 2+ carotid pulse no bruit, JVD not distended Respiratory: Clear to auscultation bilaterally, Normal air movement Cardiovascular: No edema, Normal pulses, Regular rate/rhythm Capillary refill: <2 Seconds Gastrointestinal: Normal bowel sounds, Soft and benign Musculoskeletal: Other (Full range of motion of left ankle, neurovascularly intact, surgical dressing clean and dry) Integumentary: No rashes Neurological: Normal speech, Normal tone, Normal affect Lymphatics: No axilla or inguinal lymphadenopathy External genitalia: Deferred Rectal: Deferred Laboratory Data at Discharge: WBC 8.20 thou/uL (4.3-10.9) 09/23/23 04:21 Hgb 16.9 g/dL (13.6-17.9) 09/23/23 04:21 Hct 49.3 % (39.6-49.0) H 09/23/23 04:21 Plt Count 192 thou/uL (152-406) 09/23/23 04:21 Sodium 138 mEq/L (136-145) 09/23/23 04:21 Potassium 3.4 mEq/L (3.5-5.1) L 09/23/23 04:21 BUN 6 mg/dL (7-18) L 09/23/23 04:21 Creatinine 1.37 mg/dL (0.70-1.30) H 09/23/23 04:21 Glucose 96 mg/dL (74-106) 09/23/23 04:21 Total Bilirubin 0.7 mg/dL (0.2-1.0) 09/23/23 04:21 AST 72 U/L (15-37) H 09/23/23 04:21 ALT 128 U/L (16-61) H 09/23/23 04:21 Alkaline Phosphatase 64 U/L (45-117) 09/23/23 04:21 <Duarte,Thuy Deep - Last Filed: 09/24/23 08:58> Vital Signs/Physical Exam: Temp Pulse Resp BP Pulse Ox 98.2 F 73 14 127/58 L 93 09/24/23 08:00 09/24/23 08:00 09/24/23 08:00 09/24/23 08:00 09/24/23 08:00 Laboratory Data at Discharge: WBC 8.20 thou/uL (4.3-10.9) 09/23/23 04:21 Hgb 16.9 g/dL (13.6-17.9) 09/23/23 04:21 Hct 49.3 % (39.6-49.0) H 09/23/23 04:21 Plt Count 192 thou/uL (152-406) 09/23/23 04:21 Sodium 138 mEq/L (136-145) 09/23/23 04:21 Potassium 3.4 mEq/L (3.5-5.1) L 09/23/23 04:21 BUN 6 mg/dL (7-18) L 09/23/23 04:21 Creatinine 1.37 mg/dL (0.70-1.30) H 09/23/23 04:21 Glucose 96 mg/dL (74-106) 09/23/23 04:21 Total Bilirubin 0.7 mg/dL (0.2-1.0) 09/23/23 04:21 AST 72 U/L (15-37) H 09/23/23 04:21 ALT 128 U/L (16-61) H 09/23/23 04:21 Alkaline Phosphatase 64 U/L (45-117) 09/23/23 04:21 <Jaymie Diaz - Last Filed: 09/24/23 11:45> Diet: Regular Activity: ROMleft ankle <Thuy Duarte - Last Filed: 09/24/23 08:58> <Jaymie Diaz - Last Filed: 09/24/23 11:45> Home Medications: Fenofibrate [Tricor*] 145 mg PO DAILY 09/22/23 Omeprazole 20 mg PO DAILY 09/22/23 Hydrocodone 5/APAP 325 [[place] 5/325] 1 tab PO Q6H PRN 3 Days #12 tab 09/24/23 New Medications: Hydrocodone 5/APAP 325 [[place] 5/325] 1 tab PO Q6H PRN 3 Days #12 tab PRN Reason: Pain Physician Discharge Instructions: Mr. Chan underwent surgical removal of the needle yesterday afternoon. The removal was somewhat technical and did penetrate some ligaments. Dr. Barreto reevaluated the surgical area this morning and the patient has full range of motion of his left ankle. The patient is pain-free unless ambulatory. For that reason he will be discharged with crutches. He is to do range of motion ankle exercises every 2-3 hours while awake. He should follow-up with Dr. Mcdonnell of in his clinic weekly if the patient prefers, but at least in 2 weeks for wound reevaluation and staple removal. Incidentally Mr. Chan has some elevations of his AST and ALT. He should continue his current medications and follow-up with his PCP for reevaluation. Followup: Duc Dao MD [Primary Care Provider] -
[2023-09-24 10:22] VITALS: O2SAT 93
== END 2023-09-24 10:28 | disposition home or self-care (01) ==
LOC: ER 16:28 → ERHOLD 18:49 → 2ND 19:45
PROVIDERS: ADMIT Internal Medicine Sleep Medicine; ATTEND Hospitalist
PROC: 0JCP0ZZ Extirpation of Matter from Left Lower Leg Subcutaneous Tissue and Fascia, Open Approach (ICD-10-PCS; principal; 2023-09-23 16:30)
DX: M79.5 Residual foreign body in soft tissue (principal); R94.5 Abnormal results of liver function studies; I10 Essential (primary) hypertension; K21.9 Gastro-esophageal reflux disease without esophagitis
CPT/HCPCS: 96365; 85025 ×2; 36415; 80053 ×2; 76000; 73590; 96375; 96372; 99285; 20525; J2704; J2250; J3010; J2270 ×2; J2175; J2405 ×3; J7030 ×4; J0690 ×2; 88300; G0378